=== PATIENT | female | born 1975 | race Caucasian/White ===

== ENCOUNTER 2024-01-06 09:24 | Emergency (ER) | payer SELFPAY ==
--- NOTE | 2024-01-06 09:48 | EDPHYS ---
Physician Documentation [facility] Name: Dolly Quiroga Age: 48 yrs Sex: Female : 1975 Arrival Date: 01/06/2024 Time: 09:24 Bed 14 Private MD: ED Physician Carlitos Sullivan HPI: 01/05 10:01 This 48 yrs old Female presents to ER via Ambulatory with complaints of Rash. sb4 10:01 The patient's rash thought to be caused by an unknown cause. The rash is located on the sb4 back and chest. The rash can be described as raised, vesicular. Onset: The symptoms/episode began/occurred 1 week(s) ago. Associated signs and symptoms: Pertinent positives: itching, Pain Pertinent negatives: difficulty breathing, fever. Treatment given at home: Benadryl, steroid lotion/cream. The patient has not experienced similar symptoms in the past. The patient has not recently seen a physician. Historical: - Allergies: 09:39 No Known Allergies; db - PMHx: 09:39 None; db - Immunization history:: Adult Immunizations unknown. - Infectious Disease History:: Denies. - Social history:: Smoking status: Patient denies any tobacco usage or history of. ROS: 10:01 Constitutional: Negative for fever, chills, and weight loss, sb4 10:01 Skin: Positive for rash, 10:01 All other systems are negative, Exam: 10:01 Constitutional: This is a well developed, well nourished patient who is awake, alert, sb4 and in no acute distress. 10:01 Head/Face: Normocephalic, atraumatic. Eyes: Extra-ocular motions intact. Periorbital areas with no swelling, redness, or edema. ENT: Mucous membranes moist. 10:01 Skin: rash a moderate rash is noted, zoster, on the left chest wall, left back - noted dermatomal pattern, Vital Signs: 09:35 BP 112 / 69; Pulse 74; Resp 18; Temp 98.2; Pulse Ox 100% ; Weight 90.72 kg; Height 5 db ft. 4 in. ; 09:35 Body Mass Index 34.33 (90.72 kg, 162.56 cm) db MDM: 09:32 Patient medically screened. sb4 10:03 Data reviewed: vital signs, nurses notes, and as a result, I will discharge patient. sb4 Counseling: I had a detailed discussion with the patient and/or guardian regarding the historical points, exam findings, and any diagnostic results supporting the discharge/admit diagnosis, to return to the emergency department if symptoms worsen or persist or if there are any questions or concerns that arise at home. 01/05 09:40 Order name: Michael. Order: gown; Complete Time: 09:41 sb4 Administered Medications: No medications were administered Disposition: 11:42 Co-signature as Attending Physician, Carlitos Sullivan MD I reviewed the patient's care rt provided by the Advanced Practice Provider and agree with the diagnosis and treatment plan. Disposition Summary: 01/06/24 09:47 Discharge Ordered Notes: Location: Home sb4 Problem: an ongoing problem sb4 Symptoms: are unchanged sb4 Condition: Stable sb4 Diagnosis - Herpes zoster (shingles) left chest wall sb4 Followup: sb4 - With: Private Physician - When: As needed - Reason: Recheck today's complaints, Re-evaluation by your physician Discharge Instructions: - Discharge Summary Sheet sb4 - Shingles, [id number] sb4 Forms: - Patient Portal Instructions sb4 - Leadership Thank You Letter sb4 Prescriptions: - valacyclovir 1 gram Oral tablet - take 1 tablet ORAL route every 8 hours for 7 days; 21 tablet; Refills: 0, sb4 Product Selection Permitted Signatures: Debo Fernandez, RN RN Kimmy Sherwood PA-C PA-C sb4 Carlitos Sullivan MD MD rt
--- NOTE | 2024-01-06 09:48 | ER ---
Nurse's Notes [facility] Name: Dolly Quiroga Age: 48 yrs Sex: Female : 1975 Arrival Date: 01/06/2024 Time: 09:24 Bed 14 Private MD: Diagnosis: Herpes zoster (shingles) left chest wall Presentation: 01/05 09:35 Chief complaint: Patient states: RASH THAT IS PAINFUL FROM CHEST WRAPS AROUND TO BACK X db 1 WEEK. WITH BLISTERS GRADUALLY GETTING WORSE. Coronavirus screen: Client denies travel out of the [place] in the last 14 days. At this time, the client does not indicate any symptoms associated with coronavirus-19. Ebola Screen: Patient negative for fever greater than or equal to 101.5 degrees Fahrenheit, and additional compatible Ebola Virus Disease symptoms Patient denies exposure to infectious person. Patient denies travel to an Ebola-affected area in the 21 days before illness onset. No symptoms or risks identified at this time. Initial Sepsis Screen: Does the patient meet any 2 criteria? No. Patient's initial sepsis screen is negative. Does the patient have a suspected source of infection? No. Patient's initial sepsis screen is negative. Risk Assessment: Do you want to hurt yourself or someone else? Patient reports no desire to harm self or others. Onset of symptoms was January 06, 2024. 09:35 Method Of Arrival: Ambulatory db 09:35 Acuity: ANTONINO 4 db Triage Assessment: 09:39 General: Appears in no apparent distress. comfortable, Behavior is calm, cooperative. db Pain: Complains of pain in back. Historical: - Allergies: 09:39 No Known Allergies; db - PMHx: 09:39 None; db - Immunization history:: Adult Immunizations unknown. - Infectious Disease History:: Denies. - Social history:: Smoking status: Patient denies any tobacco usage or history of. Screenin:02 [facility] ED Fall Risk Assessment (Adult) History of falling in the last 3 months, kc6 including since admission No falls in past 3 months (0 pts) Confusion or Disorientation No (0 pts) Intoxicated or Sedated No (0 pts) Impaired Gait No (0 pts) Mobility Assist Device Used No (0 pt) Altered Elimination No (0 pt) Score/Fall Risk Level 0 - 2 = Low Risk. Abuse screen: Denies threats or abuse. Denies injuries from another. Nutritional screening: No deficits noted. Tuberculosis screening: No symptoms or risk factors identified. Assessment: 09:40 General: Appears in no apparent distress. comfortable, well groomed, well developed, kc6 Behavior is calm, cooperative, appropriate for age. Pain: Complains of pain in chest and back. Neuro: Level of Consciousness is awake, alert, obeys commands, Oriented to person, place, time, situation, Appropriate for age. Respiratory: Airway is patent Trachea midline Respiratory effort is even, unlabored. Derm: Skin is intact, is healthy with good turgor, Skin is normal, Rash noted that is on chest and back. Vital Signs: 09:35 BP 112 / 69; Pulse 74; Resp 18; Temp 98.2; Pulse Ox 100% ; Weight 90.72 kg; Height 5 db ft. 4 in. ; 09:35 Body Mass Index 34.33 (90.72 kg, 162.56 cm) db ED Course: 09:30 Patient arrived in ED. mg5 09:30 Kimmy Stark PA-C is PHCP. sb4 09:30 Carlitos Sullivan MD is Attending Physician. sb4 09:39 Triage completed. db 09:39 Arm band placed on Patient placed in an exam room. db 09:41 Stacy Alarcon RN is Primary Nurse. kc6 10:03 Patient has correct armband on for positive identification. Placed in gown. Bed in low kc6 position. Call light in reach. Side rails up X 1. Pulse ox on. NIBP on. Pillow given. 10:03 No provider procedures requiring assistance completed. Patient did not have IV access kc6 during this emergency room visit. Administered Medications: No medications were administered Medication: 10:03 VIS not applicable for this client. kc6 Outcome: 09:47 Discharge ordered by . sb4 10:03 Discharged to home ambulatory, kc6 10:03 Condition: good 10:03 Discharge instructions given to patient, Instructed on discharge instructions, follow up and referral plans. medication usage, Demonstrated understanding of instructions, follow-up care, medications, Prescriptions given X 1, 10:04 Patient left the ED. kc6 Signatures: Stacy Alarcon RN RN kc6 Debo Fernandez RN RN Kimmy Stark PA-C PA-C sb4 Natalie Aly mg5 Corrections: (The following items were deleted from the chart) 09:40 09:35 BP 112 / 69; Pulse 74bpm; Resp 18bpm; Pulse Ox 100%; Temp 98.2F; db db
[2024-01-06 10:37] VITALS: BP 112/69; TEMP 98.2; O2SAT 100
== END 2024-01-06 10:04 | disposition home or self-care (01) ==
LOC: ER 09:24
DX: B02.9 Zoster without complications (principal)
CPT/HCPCS: 99283